=== PATIENT | male | born 1965 | race Caucasian/White ===

== ENCOUNTER 2017-04-17 11:35 | Emergency (ER) | payer OTHER ==
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
[2017-04-17 12:14] VITALS: TEMP 98.5; BMI 38.9
[2017-04-17 13:00] LABS: ALBUMIN 3.8 g/dl (3.4-5.0); ANION GAP 6 (8-16); CALCIUM 10.5 mg/dL (8.5-10.1); CO2 26 mmol/L (21-32); CREATININE 0.6 mg/dL (0.7-1.3); GLUCOSE,RANDOM 183 mg/dL (74-106); SGOT/AST 33 U/L (15-37); SGPT/ALT 62 U/L (12-78)
[2017-04-17 13:01] LABS: ALK PHOS 127 U/L (45-117); BILIRUBIN,TOTAL 0.4 mg/dL (0.2-1.0)
[2017-04-17] MEDS ORDERED: morphine CARPU-JECT 4 MG/1 ML DISP.SYRIN IVPUSH ONE (13:15)
[2017-04-17] MEDS ORDERED: morphine CARPU-JECT 4 MG/1 ML DISP.SYRIN ONE (13:16)
[2017-04-17] MEDS ORDERED: KETOROLAC TROMETHAMINE 15 MG/ML VIAL IVPUSH ONE (14:10)
[2017-04-17] MEDS ORDERED: KETOROLAC TROMETHAMINE 15 MG/ML VIAL ONE (14:18)
[2017-04-17 14:38] LABS: BASOPHIL 0.6 % (0-2.0); EOSINOPHIL 1.3 % (0-4.5); MCH 23.9 pg (25.7-33.7); MCHC 32.1 g/dl (32.0-35.9); MEAN CELL VOLUME 74.5 fl (80-96); MEAN PLT VOLUME 8.6 fl (7.5-11.1); PLATELET COUNT 171 K/MM3 (134-434); RDW 15.1 % (11.9-15.9); WHITE BLOOD COUNT 6.9 K/mm3 (4.0-10.0)
[2017-04-17 15:50] VITALS: BP 149/85; PULSE 81
== END 2017-04-17 15:54 | disposition home or self-care (01) ==
LOC: JER 11:35
PROC: 3E0333Z Introduction of Anti-inflammatory into Peripheral Vein, Percutaneous Approach (ICD-10-PCS; principal; 2017-04-17)
PROC: 3E033NZ Introduction of Analgesics, Hypnotics, Sedatives into Peripheral Vein, Percutaneous Approach (ICD-10-PCS; 2017-04-17)
DX: M54.2 Cervicalgia (principal); E11.9 Type 2 diabetes mellitus without complications; G89.29 Other chronic pain; V43.52XA Car driver injured in collision with other type car in traffic accident, initial encounter; Y93.89 Activity, other specified; Y92.410 Unspecified street and highway as the place of occurrence of the external cause; K85.90 Acute pancreatitis without necrosis or infection, unspecified
CPT/HCPCS: 36415; 70450-TC; 72125-TC; 80053; 85025; 99284-25

== ENCOUNTER 2018-01-21 16:40 | Observation (INO) | payer OTHER ==
[2018-01-21] MEDS ORDERED: SODIUM CHLORIDE 1,000 ML IV ONE ×2 (17:21→18:50)
[2018-01-21] MEDS ORDERED: morphine CARPU-JECT 4 MG/1 ML DISP.SYRIN IVPUSH ONE ×2 (17:21→18:10)
[2018-01-21] MEDS ORDERED: ONDANSETRON 4 MG/2 ML VIAL IVPUSH ONE ×2 (17:21→21:15)
[2018-01-21] MEDS ORDERED: morphine SULFATE 4 MG/ML VIAL ONE ×2 (17:22→18:21)
[2018-01-21] MEDS ORDERED: ONDANSETRON 4 MG/2 ML VIAL ONE ×2 (17:22→21:24)
--- NOTE | 2018-01-21 17:26 | PDOC ---
History of Present Illness - General History Source: Patient Exam Limitations: No Limitations - History of Present Illness Initial Comments: 01/21/18 17:43 The patient is a 52 year old male with a significant past medical history of pancreatitis, hyperlipidemia, diabetes, and chronic back pain who presents to the emergency department for evaluation of epigastric pain. The patient reports moderate mid epigastric pain since Saturday. He describes the pain as intermittent, sharp, throbbing, radiating towards the left to the back, ranked 8 /10 in severity. He reports the pain began after binge eating a large of amount of junk food secondary to his dog passing away on Saturday. Since then, he reports associated symptoms of chills, nausea, and generalized weakness. The patient reports 3 episodes of non bloody non bilious emesis occuring yesterday and today. He reports an episode of diarrhea today which was large in volume, but denies bloody or tarry stool. The patient states the aforementioned symptoms have presented when he was diagnosed with pancreatitis in 2012, prompting him to visit the emergency department for further evaluation. The patient notes he has been encountering these symptoms once a year, for the passed 6 years. He notes his triglyceride, hdl, and ldl levels were off the charts after visiting his primary care doctor 2 weeks ago. 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 The patient denies chest pain, shortness of breath, headache, fever, constipation, and any urinary symptoms. Denies recent travel and history of gallstones. Allergies: NKDA, IV Dye. Social History: Patient reports occasional alcohol consumption. No reported cigarette or drug use. Surgical History: Lymph node removal. PCP: Dr. Sprague ([facility]) GI: Dr. Julius Esquivel ([facility]) <Mckayla Mascorro - Last Filed: 01/21/18 17:43> <Anthony Schulz - Last Filed: 01/21/18 18:09> - General Chief Complaint: Pain Stated Complaint: yakelin pain Time Seen by Provider: 01/21/18 16:42 Past History <Mckayla Mascorro - Last Filed: 01/21/18 17:43> - Past Medical History COPD: No Diabetes: Yes GI Disorders: Yes (PANCREATITIS) - Immunization History Immunization Up to Date: Yes - Suicide/Smoking/Psychosocial Hx Smoking Status: Yes Smoking History: Never smoked Have you smoked in the past 12 months: No Number of Cigarettes Smoked Daily: 0 Information on smoking cessation initiated: No Hx Alcohol Use: No Drug/Substance Use Hx: No Substance Use Type: None <Anthony Schulz - Last Filed: 01/21/18 18:09> - Past Medical History Allergies/Adverse Reactions: Allergies Allergy/AdvReac Type Severity Reaction Status Date / Time No Known Drug Allergies Allergy Verified 04/17/17 13:07 IV DYE Allergy Uncoded 04/17/17 12:59 Home Medications: Ambulatory Orders Dapagliflozin Propanediol [Farxiga] 0 mg PO DAILY 04/17/17 Metformin HCl [Metformin HCl ER] 1,000 mg PO BID 04/17/17 Fenofibrate,Micronized [Fenofibrate] 134 mg PO DAILY 01/21/18 Trazodone HCl 300 mg PO HS 01/21/18 Review of Systems - Review of Systems Constitutional: Yes: Chills. No: Fever Respiratory: No: Cough, Shortness of Breath Cardiac (ROS): No: Chest Pain ABD/GI: Yes: See HPI, Diarrhea, Nausea, Vomiting. No: Constipated : No: Dysuria, Frequency Neurological: No: Headache All Other Systems: Reviewed and Negative <Anthony Schulz - Last Filed: 01/21/18 18:09> *Physical Exam - Vital Signs Last Vital Signs Temp Pulse Resp BP Pulse Ox 98.5 F 108 H 20 143/79 95 01/21/18 16:40 01/21/18 16:40 01/21/18 16:40 01/21/18 16:40 01/21/18 16:40 - Physical Exam Comments: GENERAL: The patient is awake, alert, and fully oriented, in no acute distress. HEAD: Normal with no signs of trauma. EYES: Pupils equal, round and reactive to light, extraocular movements intact, sclera anicteric, conjunctiva clear with no pallor. ENT: (+)Slightly dry mucous membranes. Ears normal, nares patent. NECK: Normal range of motion, supple. LUNGS: Breath sounds equal, clear to auscultation bilaterally. No wheeze/ crackles. HEART: Regular rate and rhythm, normal S1 and S2 without murmur or rub. ABDOMEN: (+)diffuse tenderness to palpation without focal guarding or rebound. Bowel sounds are decreased. EXTREMITIES: Normal range of motion, no edema. No clubbing or cyanosis. No cords, erythema, or tenderness. NEUROLOGICAL: Cranial nerves II through XII grossly intact. Normal speech, normal gait. PSYCH: Normal mood, normal affect. SKIN: Warm, Dry, normal turgor, no rashes or lesions noted. <Mckayla Mascorro - Last Filed: 01/21/18 17:43> - Vital Signs Last Vital Signs Temp Pulse Resp BP Pulse Ox 98.5 F 108 H 20 143/79 95 01/21/18 16:40 01/21/18 16:40 01/21/18 16:40 01/21/18 16:40 01/21/18 16:40 <Anthony Schulz - Last Filed: 01/21/18 18:09> Heart Score/ECG Review #1 ECG reviewed & interpreted by me at: 17:14 General ECG Interpretation: Sinus Rhythm, Normal Rate (101), Normal Intervals ( qtc 446), No acute ischemic changes <Anthony Schulz - Last Filed: 01/21/18 18:09> ED Treatment Course - LABORATORY CBC & Chemistry Diagram: 01/21/18 17:25 01/21/18 17:25 - ADDITIONAL ORDERS Additional order review: Laboratory Results 01/21/18 16:50 Urine Color Yellow Urine Appearance Clear Urine pH 6.0 Ur Specific [place] 1.015 Urine Protein Negative Urine Glucose (UA) 2+ H Urine Ketones Negative Urine Blood Negative Urine Nitrite Negative Urine Bilirubin Negative Urine Urobilinogen 0.2 Ur Leukocyte Esterase Negative 01/21/18 17:25 RBC 6.17 H MCV 74.8 L MCHC 33.7 RDW 14.5 MPV 8.3 Neutrophils % 57.2 Lymphocytes % 31.8 Monocytes % 7.5 Eosinophils % 2.1 Basophils % 1.4 <Mckayla Masocrro - Last Filed: 01/21/18 17:43> - LABORATORY CBC & Chemistry Diagram: 01/21/18 17:25 01/21/18 17:25 <Anthony Schulz - Last Filed: 01/21/18 18:09> Medical Decision Making - Medical Decision Making 01/21/18 17:23 A portion of this note was documented by scribe services under my direction. I have reviewed the details of the note, within reason, and agree with the documentation with the following case summary and management plan written by me. 52-year-old male with history of diabetes and pancreatitis presents with epigastric and left upper quadrant pain for 4 days similar to past pancreatitis. Patient had grief over his dog passing way, had a large meal 5 minutes ago which he feels prompted his pancreatitis. The following day, he awoke with his typical gradual and progressive epigastric pain with nonbloody diarrhea, and nonbloody nonbilious emesis beginning yesterday. Chills but no fever, no cardiopulmonary complaints, no recent travel. Slight tachycardia, otherwise ambulating steadily and well-appearing Slightly dry mucosa, no jaundice or pallor Obese, soft, nondistended abdomen. Diffuse tenderness without focal guarding or rebound, greatest in the epigastric region. Skin is clear, no edema 52-year-old male with history of pancreatitis presents with possible recurrence , question triglyceride induced, denies alcohol use and reports negative gallstone workups in the past. No focal right upper quadrant pain or tenderness to suggest biliary etiology. He is primarily cared for at [facility]. Check labs, urinalysis EKG is nonischemic IV fluids, pain control, nausea control Reassess 01/21/18 18:01 No leukocytosis, white count 5.8 with normal differential. Normal hemoglobin. Chemistries notable for mild hyponatremia and hypochloremia with metabolic alkalosis consistent with recent vomiting. Slightly elevated glucose with normal anion gap. Urinalysis is clear with only 2+ glucose. Lipase pending. Receiving iv fluids, pain improved but persistent, will give another dose of pain meds. Will proceed with admission given dehydration and hyperglycemia, gastritis v. pancreatitis pending lipase. <Anthony Schulz - Last Filed: 01/21/18 18:09> *DC/Admit/Observation/Transfer - Attestations Scribe Attestion: Documentation prepared by Mckayla Mascorro, acting as medical office receptionist for Anthony Schulz MD. <Mckayla Mascorro - Last Filed: 01/21/18 17:43> <Anthony Schulz - Last Filed: 01/21/18 18:09> Diagnosis at time of Disposition: Epigastric abdominal pain, Metabolic alkalosis - Discharge Dispostion Condition at time of disposition: Fair
[2018-01-21 17:28] LABS: URINE APPEARANCE Clear; URINE BILIRUBIN Negative (NEGATIVE); URINE GLUCOSE (UA) 2+ (NEGATIVE); URINE KETONE Negative (NEGATIVE); URINE LEUK ESTERASE Negative (NEGATIVE); URINE NITRITE Negative (NEGATIVE); URINE PROTEIN Negative (NEGATIVE); URINE UROBILINOGEN 0.2 (0.2-1.0)
[2018-01-21 17:30] LABS: URINE COLOR YELLOW
[2018-01-21 17:38] LABS: BASO % 1.4 % (0-2.0); EOS % 2.1 % (0-4.5); HEMATOCRIT 46.2 % (35.4-49); HEMOGLOBIN 15.6 GM/dl (11.7-16.9); LYMPH % 31.8 % (8-40); MCH 25.2 pg (25.7-33.7); MCHC 33.7 g/dl (32.0-35.9); MEAN CELL VOLUME 74.8 fl (80-96); MEAN PLT VOLUME 8.3 fl (7.5-11.1); MONO % 7.5 % (3.8-10.2); NEUT % 57.2 % (42.8-82.8); PLATELET COUNT 184 K/MM3 (134-434); RBC 6.17 M/mm3 (4.00-5.60); RDW 14.5 % (11.9-15.9); WHITE BLOOD COUNT 5.8 K/mm3 (4.0-10.8)
[2018-01-21 17:52] LABS: ALBUMIN 4.1 g/dl (3.5-5.0); ALK PHOS 101 U/L (32-92); ANION GAP 8 (8-16); BLOOD UREA NITROGEN 12 mg/dl (7-18); CALCIUM 10.5 mg/dl (8.4-10.2); CHLORIDE 95 mmol/L (98-107); CO2 29 mmol/L (22-28); CREATININE 0.7 mg/dl (0.6-1.3); POTASSIUM 4.1 mmol/L (3.5-5.1); SGOT/AST 24 U/L (10-42); SGPT/ALT 35 U/L (10-40); SODIUM 132 mmol/L (136-145); TOT PROT 6.8 g/dl (6.4-8.3)
[2018-01-21 17:57] LABS: BILIRUBIN,TOTAL < 0.3 mg/dl (0.2-1.0); GLUCOSE,RANDOM 382 mg/dl (74-106)
--- NOTE | 2018-01-21 18:56 | PDOC ---
*Physical Exam - Vital Signs Last Vital Signs Temp Pulse Resp BP Pulse Ox 98.5 F 108 H 20 143/79 95 01/21/18 16:40 01/21/18 16:40 01/21/18 16:40 01/21/18 16:40 01/21/18 16:40 ED Treatment Course - LABORATORY CBC & Chemistry Diagram: 01/21/18 17:25 01/21/18 17:25 - ADDITIONAL ORDERS Additional order review: Laboratory Results 01/21/18 01/21/18 17:25 16:50 Sodium 132 L Potassium 4.1 Chloride 95 L Carbon Dioxide 29 H Anion Gap 8 BUN 12 Creatinine 0.7 Creat Clearance w eGFR > 60 Random Glucose 382 H* Calcium 10.5 H Total Bilirubin < 0.3 AST 24 ALT 35 Alkaline Phosphatase 101 H Total Protein 6.8 Albumin 4.1 Urine Color Yellow Urine Appearance Clear Urine pH 6.0 Ur Specific [place] 1.015 Urine Protein Negative Urine Glucose (UA) 2+ H Urine Ketones Negative Urine Blood Negative Urine Nitrite Negative Urine Bilirubin Negative Urine Urobilinogen 0.2 Ur Leukocyte Esterase Negative 01/21/18 17:25 RBC 6.17 H MCV 74.8 L MCHC 33.7 RDW 14.5 MPV 8.3 Neutrophils % 57.2 Lymphocytes % 31.8 Monocytes % 7.5 Eosinophils % 2.1 Basophils % 1.4 - Medications Given in the ED: ED Medications Discontinued Medications Generic Name Dose Route Start Last Admin Trade Name Freq PRN Reason Stop Dose Admin Sodium Chloride 1,000 mls @ 1,000 mls/hr 01/21/18 17:21 01/21/18 17:22 Normal Saline - IV 01/21/18 18:20 1,000 mls/hr ONCE ONE Administration Morphine Sulfate 4 mg 01/21/18 17:21 01/21/18 17:22 Morphine Injection - IVPUSH 01/21/18 17:22 4 mg ONCE ONE Administration Morphine Sulfate 4 mg 01/21/18 18:10 01/21/18 18:24 Morphine Injection - IVPUSH 01/21/18 18:11 4 mg ONCE ONE Administration Ondansetron HCl 8 mg 01/21/18 17:21 01/21/18 17:22 Zofran Injection IVPUSH 01/21/18 17:22 8 mg ONCE ONE Administration Progress Note - Progress Note Progress Note: This is a 52-year-old male with 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 Care of this patient was transferred to me from Dr. elaine at 1800 hrs. Patient has admission pending for acute pancreatitis. Patient has a normal white count his glucose is moderately elevated so I wrote him for 10 units of regular insulin. Patient also is on his second liter of IV fluid which will also help with his glucose. Patient's sodium is little low and he is little alkalotic. IV fluids should help correct both of those. Patient will be admitted to an observation bed. 19:20 Patient accepted for admission by Dr. Bernard hospitalist service Signout given to the admitting hospitalist, who accepts the patient. Discussed plan with the patient., Patient aware of the plan and agree. Patient is clinically unchanged and stable. *DC/Admit/Observation/Transfer Diagnosis at time of Disposition: Epigastric abdominal pain, Metabolic alkalosis - Discharge Dispostion Condition at time of disposition: Fair - Referrals - Patient Instructions - Post Discharge Activity
[2018-01-21] MEDS ORDERED: HYDROmorphone HCL CARPU-JECT 1 MG/1 ML DISP.SYRIN IVPUSH ONE (18:59)
[2018-01-21] MEDS ORDERED: INSULIN REGULAR HUMAN 100 UNITS/ML *VIAL SQ ONE (19:01)
[2018-01-21] MEDS ORDERED: HYDROmorphone HCL CARPU-JECT 2 MG/1 ML DISP.SYRIN ONE (19:01)
[2018-01-21] MEDS ORDERED: INSULIN REGULAR HUMAN 100 UNITS/ML *VIAL ONE (19:04)
[2018-01-21 19:37] LABS: LIPASE 218 U/L (73-393)
[2018-01-21] MEDS ORDERED: HEMOQUE TEST 1 EACH EACH ONE (20:35)
[2018-01-21] MEDS ORDERED: ONDANSETRON 4 MG/2 ML VIAL IVPUSH PRN (20:37)
[2018-01-21] MEDS ORDERED: SODIUM CHLORIDE 1,000 ML IV SCH (20:45)
[2018-01-21] MEDS: morphine SULFATE 4 MG/ML VIAL IVPUSH PRN (22:49)
[2018-01-21] MEDS ORDERED: morphine CARPU-JECT 4 MG/1 ML DISP.SYRIN IVPUSH PRN (23:00)
[2018-01-21 23:13] VITALS: BMI 33.0
[2018-01-21] MEDS ORDERED: KETOROLAC TROMETHAMINE 30 MG/1 ML VIAL IVPUSH PRN (23:53)
[2018-01-22 05:42] VITALS: BP 117/58; PULSE 94; TEMP 98.9
--- NOTE | 2018-01-22 07:05 | HP ---
CHIEF COMPLAINT: abdominal pain PCP: Dr Sprague ([place]) GI: Dr Esquivel ([facility]) HISTORY OF PRESENT ILLNESS: Patient is a 52 year old male with a past medical history a significant past medical history of pancreatitis, hyperlipidemia, diabetes, and chronic back pain. Patient was reports epigastric pain since 01/18/18. Patient describes the pain as intermittent, sharp, throbbing, radiating towards the left to the back, ranked 8/10 in severity. He reports the pain started after binge eating a large of amount of junk food secondary to his dog passing away on Saturday. Since then, he reports associated symptoms of chills, nausea, and generalized weakness. The patient reports 3 episodes of non bloody non bilious emesis for the past 2 days. ER course was notable for: (1)ct of abd/pelvis w/o contrast: no acute pathology (2)wbc 5.8 (3) lipase 218 Recent Travel: none PAST MEDICAL HISTORY: mother alive and well father alive and well PAST SURGICAL HISTORY: lymph node removal Social History: resides at home alone, employed group managing director Smoking: Alcohol: Drugs: Family History: Allergies No Known Drug Allergies Allergy (Verified 04/17/17 13:07) IV DYE Allergy (Uncoded 04/17/17 12:59) HOME MEDICATIONS: Home Medications Medication Instructions Recorded Dapagliflozin Propanediol [Farxiga] 0 mg PO DAILY 04/17/17 Metformin HCl [Metformin HCl ER] 1,000 mg PO BID 04/17/17 Fenofibrate,Micronized 134 mg PO DAILY 01/21/18 [Fenofibrate] Trazodone HCl 300 mg PO HS 01/21/18 REVIEW OF SYSTEMS CONSTITUTIONAL: Absent: fever, chills, diaphoresis, generalized weakness, malaise, loss of appetite, weight change HEENT: Absent: rhinorrhea, nasal congestion, throat pain, throat swelling, difficulty swallowing, mouth swelling, ear pain, eye pain, visual changes CARDIOVASCULAR: Absent: chest pain, syncope, palpitations, irregular heart rate, lightheadedness , peripheral edema RESPIRATORY: Absent: cough, shortness of breath, dyspnea with exertion, orthopnea, wheezing, stridor, hemoptysis GASTROINTESTINAL: Absent: abdominal pain, abdominal distension, nausea, vomiting, diarrhea, constipation, melena, hematochezia GENITOURINARY: Absent: dysuria, frequency, urgency, hesitancy, hematuria, flank pain, genital pain MUSCULOSKELETAL: Absent: myalgia, arthralgia, joint swelling, back pain, neck pain SKIN: Absent: rash, itching, pallor HEMATOLOGIC/IMMUNOLOGIC: Absent: easy bleeding, easy bruising, lymphadenopathy, frequent infections ENDOCRINE: Absent: unexplained weight gain, unexplained weight loss, heat intolerance, cold intolerance NEUROLOGIC: Absent: headache, focal weakness or paresthesias, dizziness, unsteady gait, seizure, mental status changes, bladder or bowel incontinence PSYCHIATRIC: Absent: anxiety, depression, suicidal or homicidal ideation, hallucinations. PHYSICAL EXAMINATION Vital Signs - 24 hr 01/21/18 01/21/18 01/21/18 16:40 19:30 20:16 Temperature 98.5 F Pulse Rate 108 H Pulse Rate [ 90 Left] Respiratory 20 16 Rate Blood Pressure 143/79 Blood Pressure 111/100 109/72 [Right] O2 Sat by Pulse 95 95 Oximetry (%) 01/21/18 01/21/18 01/21/18 22:00 22:23 22:50 Temperature 97.9 F 97.9 F Pulse Rate 90 90 Pulse Rate [ Left] Respiratory 90 H 18 Rate Blood Pressure 140/74 140/74 Blood Pressure [Right] O2 Sat by Pulse 95 95 Oximetry (%) 01/22/18 01/22/18 04:38 05:41 Temperature 98.9 F Pulse Rate 94 H Pulse Rate [ Left] Respiratory 18 20 Rate Blood Pressure 117/58 Blood Pressure [Right] O2 Sat by Pulse 95 97 Oximetry (%) GENERAL: Awake, alert, and fully oriented, in no acute distress. HEAD: Normal with no signs of trauma. EYES: Pupils equal, round and reactive to light, extraocular movements intact, sclera anicteric, conjunctiva clear. No lid lag. EARS, NOSE, THROAT: Ears normal, nares patent, oropharynx clear without exudates. Moist mucous membranes. NECK: Normal range of motion, supple without lymphadenopathy, JVD, or masses. LUNGS: Breath sounds equal, clear to auscultation bilaterally. No wheezes, and no crackles. No accessory muscle use. HEART: Regular rate and rhythm, normal S1 and S2 without murmur, rub or gallop. ABDOMEN: Soft, nontender, not distended, normoactive bowel sounds, no guarding, no rebound, no masses. No hepatomegaly or splenomegaly. MUSCULOSKELETAL: Normal range of motion at all joints. No bony deformities or tenderness. No CVA tenderness. UPPER EXTREMITIES: 2+ pulses, warm, well-perfused. No cyanosis. No clubbing. No peripheral edema. LOWER EXTREMITIES: 2+ pulses, warm, well-perfused. No calf tenderness. No peripheral edema. NEUROLOGICAL: Cranial nerves II-XII intact. Normal speech. Normal gait. PSYCHIATRIC: Cooperative. Good eye contact. Appropriate mood and affect. SKIN: Warm, dry, normal turgor, no rashes or lesions noted, normal capillary refill. Laboratory Results - last 24 hr 01/21/18 01/21/18 01/21/18 16:50 17:25 17:25 WBC 5.8 RBC 6.17 H Hgb 15.6 Hct 46.2 MCV 74.8 L MCH 25.2 L MCHC 33.7 RDW 14.5 Plt Count 184 MPV 8.3 Absolute Neuts (auto) 3.3 Neutrophils % 57.2 Lymphocytes % 31.8 Monocytes % 7.5 Eosinophils % 2.1 Basophils % 1.4 Sodium 132 L Potassium 4.1 Chloride 95 L Carbon Dioxide 29 H Anion Gap 8 BUN 12 Creatinine 0.7 Creat Clearance w eGFR > 60 POC Glucometer Random Glucose 382 H* Calcium 10.5 H Total Bilirubin < 0.3 AST 24 ALT 35 Alkaline Phosphatase 101 H Total Protein 6.8 Albumin 4.1 Lipase 218 Urine Color Yellow Urine Appearance Clear Urine pH 6.0 Ur Specific [place] 1.015 Urine Protein Negative Urine Glucose (UA) 2+ H Urine Ketones Negative Urine Blood Negative Urine Nitrite Negative Urine Bilirubin Negative Urine Urobilinogen 0.2 Ur Leukocyte Esterase Negative 01/21/18 01/21/18 20:40 22:38 WBC RBC Hgb Hct MCV MCH MCHC RDW Plt Count MPV Absolute Neuts (auto) Neutrophils % Lymphocytes % Monocytes % Eosinophils % Basophils % Sodium Potassium Chloride Carbon Dioxide Anion Gap BUN Creatinine Creat Clearance w eGFR POC Glucometer [phone] Random Glucose Calcium Total Bilirubin AST ALT Alkaline Phosphatase Total Protein Albumin Lipase Urine Color Urine Appearance Urine pH Ur Specific [place] Urine Protein Urine Glucose (UA) Urine Ketones Urine Blood Urine Nitrite Urine Bilirubin Urine Urobilinogen Ur Leukocyte Esterase ASSESSMENT/PLAN: 1) GI abdominal pain - lipase wnl, benign abdominal exam,, ct scan of abdomen reviewed, pain likely gastritis vs diabetic gastroperesis,will start protonix and reglan - serial abdominal exams - appreciate GI input 2) endo DM hyperglycemia -hgb a1c 12.3, uncontrolled diabetes, will continue metformin, start fingersticks achs with regular insulin sliding scale - appreciate endo input 3) cardiovascular hypertryglceremia - continue finobrate f/e/n - diabetic diet - replete lytes prn ppx - oob - protonix dispo - pt requires observation admission Problem List - Problem (1) Epigastric abdominal pain Code(s): R10.13 - EPIGASTRIC PAIN Visit type - Emergency Visit Emergency Visit: Yes ED Registration Date: 01/21/18 Care time: The patient presented to the Emergency Department on the above date and was hospitalized for further evaluation of their emergent condition. - New Patient This patient is new to me today: Yes Date on this admission: 01/22/18 - Critical Care Critical Care patient: No Hospitalist Screening - Colonoscopy Questionnaire Colonoscopy Questionnaire: Colonoscopy Questionnaire - Patient: 50 - 75 years old and never had a screening colonoscopy: No History of colon or rectal polyps, or CA: No History of IBD, Crohn's disease or UC: No History of abdominal radiation therapy as a child: No - Relative: 1 with colon or rectal CA, or polyps at age 60 or younger: Yes Colon or rectal CA diagnosed at age 45 or younger: No Multiple relatives with colon or rectal CA: No - Outcome: Screening Result: Positive Screen
[2018-01-22 08:19] LABS: BASO % 0.5 % (0-2.0); HEMATOCRIT 41.5 % (35.4-49); HEMOGLOBIN 13.8 GM/dl (11.7-16.9); LYMPH % 37.2 % (8-40); MCH 25.1 pg (25.7-33.7); MCHC 33.2 g/dl (32.0-35.9); MEAN CELL VOLUME 75.6 fl (80-96); MEAN PLT VOLUME 8.5 fl (7.5-11.1); MONO % 8.8 % (3.8-10.2); NEUT % 51.5 % (42.8-82.8); PLATELET COUNT 144 K/MM3 (134-434); RBC 5.49 M/mm3 (4.00-5.60); RDW 14.5 % (11.9-15.9); WHITE BLOOD COUNT 4.1 K/mm3 (4.0-10.8)
[2018-01-22 08:30] LABS: AMYLASE 60 U/L (25-125); ANION GAP 4 (8-16); BLOOD UREA NITROGEN 10 mg/dl (7-18); CALCIUM 9.2 mg/dl (8.4-10.2); CHLORIDE 104 mmol/L (98-107); CO2 27 mmol/L (22-28); GLUCOSE,RANDOM 239 mg/dl (74-106); POTASSIUM 4.3 mmol/L (3.5-5.1); SODIUM 135 mmol/L (136-145)
[2018-01-22 08:33] LABS: ALBUMIN 3.2 g/dl (3.5-5.0); ALK PHOS 78 U/L (32-92); SGOT/AST 20 U/L (10-42); SGPT/ALT 34 U/L (10-40); TOT PROT 5.7 g/dl (6.4-8.3)
[2018-01-22 08:36] LABS: CREATININE < 0.8 mg/dl (0.6-1.3)
[2018-01-22 08:37] LABS: BILIRUBIN,DIRECT < 0.2 mg/dL (0.0-0.3); BILIRUBIN,TOTAL < 0.5 mg/dl (0.2-1.0)
[2018-01-22] MEDS ORDERED: METOCLOPRAMIDE HCL INJECTION 10 MG/2 ML VIAL IVPUSH ONE (09:02)
[2018-01-22] MEDS: morphine SULFATE 4 MG/ML VIAL IVPUSH PRN (09:29)
--- NOTE | 2018-01-22 09:57 | PN ---
Progress Note (short form) - Note Progress Note: Patient seen and chart reviewed. Consult dictated. Patient with recent abdominal pain ?diffuse and hx of pancreatitis in the past. No evidence of pancreatitis on CT scan and lipase level normal Doubt acute pancreatitis. Patient feels better today on Reglan and PPI. Has been under "stress" with his dog dying and work - eating junk foods. More likely has GI upset due to combination of factors and underlying peptic disease. Currently feels better and wants to eat/ increase activity. Discussed with [employer] CONSULTANT; would advance diet and continue PPI with dietary instructions (avoid fatty foods). Will follow clinically.
[2018-01-22] MEDS ORDERED: PATIENT'S OWN MEDICATION (NON-FORMULARY) (Dapagliflozin Propanediol [Farxiga] 5 MG) PO SCH (10:00)
[2018-01-22] MEDS ORDERED: PANTOPRAZOLE SODIUM 40 MG VIAL IVPUSH SCH (10:00)
[2018-01-22] MEDS ORDERED: FENOFIBRIC ACID 135 MG CAP PO SCH (10:00)
[2018-01-22] MEDS ORDERED: INSULIN SLIDING SCALE (NOVOLOG) 1 VIAL SQ SCH (11:00)
--- NOTE | 2018-01-22 11:05 | CONS ---
DATE OF CONSULTATION: DATE OF DICTATION: 01/22/2018 Patient is a 52-year-old gentleman admitted by the emergency room with abdominal pain. The patient has a past history of diabetes mellitus under fair control and a history of mild peptic disease in the past. He also reports having had pancreatitis due to elevated triglycerides several years ago. The patient presented to the emergency room with a history of abdominal pain for 1 day with some initial radiation to the back, but currently without any radiation. He states that the pain currently is more diffuse and without any nausea, vomiting, fever, or chills. His vital signs were stable on admission and his laboratory data were notable for normal liver chemistries and a normal amylase and lipase. A CAT scan of the abdomen showed no acute pathology and specifically no evidence of pancreatitis. The patient has received Reglan and PPI therapy with a good response. He currently states that the pain is markedly improved. He did also receive Toradol initially. He has no prior history of abdominal surgery, but is having some looser bowel movements currently. PHYSICAL EXAMINATION: General: On exam, he is a well-developed, moderately overweight gentleman with pink conjunctiva, a soft abdomen, normoactive bowel sounds and nonspecific tenderness throughout the abdomen without rebound or guarding. His laboratory tests today include a white count of 4.1, hemoglobin of 13.0 with hematocrit of 41.5 and normal chemistries, including LFTs and lipase. Patient without evidence of acute pancreatitis currently, appears to have had epigastric pain and some abdominal pain, possibly worsened by dietary indiscretion over the past several days along with stress related to several factors, including work and of his dog. At the present time, he is clinically improving. I would discontinue Reglan in view of his looser stool and continue him on a proton pump inhibitor, would slowly advance diet and follow clinically. TERI HINTON M.D. [id number]
[2018-01-22] MEDS ORDERED: INSULIN (NOVOLOG) ASPART 100 UNITS/ML 10ML VIAL ONE (11:45)
--- NOTE | 2018-01-22 13:09 | EKG ---
Test Reason : Blood Pressure : / mmHG Vent. Rate : 101 BPM Atrial Rate : 101 BPM P-R Int : 144 ms QRS Dur : 092 ms QT Int : 344 ms P-R-T Axes : 021 017 053 degrees QTc Int : 446 ms SINUS TACHYCARDIA OTHERWISE NORMAL ECG WHEN COMPARED WITH ECG OF 19-DEC-2012 13:57, NO SIGNIFICANT CHANGE WAS FOUND Confirmed by ERIC GREGORY MD ([id number]) on 01/22/2018 1:09:19 PM Referred By: DR MCLAUGHLIN Confirmed By:ERIC GREGORY MD
--- NOTE | 2018-01-22 13:58 | DS ---
Physical Exam: SUBJECTIVE: Patient seen and examined, ambulatory at bedside, denies any chest pain or shortness of breath, tolerating low sodium diabetic diet. OBJECTIVE:Patient is a 52 year old male with a past medical history a significant past medical history of pancreatitis, hyperlipidemia, diabetes, and chronic back pain. Patient was reports epigastric pain since Saturday, . Patient describes the pain as intermittent, sharp, throbbing, radiating towards the left to the back, ranked 8/10 in severity. He reports the pain started after binge eating a large of amount of junk food secondary to his dog passing away on Saturday. Since then, he reports associated symptoms of chills, nausea, and generalized weakness. The patient reports 3 episodes of non bloody non bilious emesis for the past 2 days. ER course was notable for: (1)ct of abd/pelvis w/o contrast: no acute pathology (2)wbc 5.8 (3) lipase 218 Vital Signs Period Temp Pulse Resp BP Sys/Poon Pulse Ox Last 24 Hr 97.9 F-98.9 F 90-108 16-90 109-143/58-100 95-97 PHYSICAL EXAM GENERAL: The patient is awake, alert, and fully oriented, in no acute distress. HEAD: Normal with no signs of trauma. EYES: PERRL, extraocular movements intact, sclera anicteric, conjunctiva clear. ENT: Ears normal, nares patent, oropharynx clear without exudates, moist mucous membranes. NECK: Trachea midline, full range of motion, supple. LUNGS: Breath sounds equal, clear to auscultation bilaterally, no wheezes, no crackles, no accessory muscle use. HEART: Regular rate and rhythm, S1, S2 without murmur, rub or gallop. ABDOMEN: Soft, nontender, nondistended, normoactive bowel sounds, no guarding, no rebound, no hepatosplenomegaly, no masses. EXTREMITIES: 2+ pulses, warm, well-perfused, no edema. NEUROLOGICAL: Cranial nerves II through XII grossly intact. Normal speech, gait not observed. PSYCH: Normal mood, normal affect. SKIN: Warm, dry, normal turgor, no rashes or lesions noted. LABS Laboratory Results - last 24 hr 01/21/18 01/21/18 01/21/18 16:50 17:25 17:25 WBC 5.8 RBC 6.17 H Hgb 15.6 Hct 46.2 MCV 74.8 L MCH 25.2 L MCHC 33.7 RDW 14.5 Plt Count 184 MPV 8.3 Absolute Neuts (auto) 3.3 Neutrophils % 57.2 Lymphocytes % 31.8 Monocytes % 7.5 Eosinophils % 2.1 Basophils % 1.4 Sodium 132 L Potassium 4.1 Chloride 95 L Carbon Dioxide 29 H Anion Gap 8 BUN 12 Creatinine 0.7 Creat Clearance w eGFR > 60 POC Glucometer Random Glucose 382 H* Hemoglobin A1c % Calcium 10.5 H Total Bilirubin < 0.3 Direct Bilirubin AST 24 ALT 35 Alkaline Phosphatase 101 H Total Protein 6.8 Albumin 4.1 Total Amylase Lipase 218 Urine Color Yellow Urine Appearance Clear Urine pH 6.0 Ur Specific [place] 1.015 Urine Protein Negative Urine Glucose (UA) 2+ H Urine Ketones Negative Urine Blood Negative Urine Nitrite Negative Urine Bilirubin Negative Urine Urobilinogen 0.2 Ur Leukocyte Esterase Negative 01/21/18 01/21/18 01/22/18 20:40 22:38 07:15 WBC 4.1 RBC 5.49 Hgb 13.8 Hct 41.5 MCV 75.6 L MCH 25.1 L MCHC 33.2 RDW 14.5 Plt Count 144 D MPV 8.5 Absolute Neuts (auto) 2.1 Neutrophils % 51.5 Lymphocytes % 37.2 Monocytes % 8.8 Eosinophils % 2.0 Basophils % 0.5 Sodium Potassium Chloride Carbon Dioxide Anion Gap BUN Creatinine Creat Clearance w eGFR POC Glucometer [phone] Random Glucose Hemoglobin A1c % Calcium Total Bilirubin Direct Bilirubin AST ALT Alkaline Phosphatase Total Protein Albumin Total Amylase Lipase Urine Color Urine Appearance Urine pH Ur Specific [place] Urine Protein Urine Glucose (UA) Urine Ketones Urine Blood Urine Nitrite Urine Bilirubin Urine Urobilinogen Ur Leukocyte Esterase 01/22/18 01/22/18 01/22/18 07:15 07:15 07:15 WBC RBC Hgb Hct MCV MCH MCHC RDW Plt Count MPV Absolute Neuts (auto) Neutrophils % Lymphocytes % Monocytes % Eosinophils % Basophils % Sodium 135 L Potassium 4.3 Chloride 104 Carbon Dioxide 27 Anion Gap 4 L BUN 10 Creatinine < 0.8 Creat Clearance w eGFR > 60 POC Glucometer Random Glucose 239 H D Hemoglobin A1c % 12.3 H Calcium 9.2 Total Bilirubin Direct Bilirubin AST ALT Alkaline Phosphatase Total Protein Albumin Total Amylase 60 Lipase 365 Urine Color Urine Appearance Urine pH Ur Specific [place] Urine Protein Urine Glucose (UA) Urine Ketones Urine Blood Urine Nitrite Urine Bilirubin Urine Urobilinogen Ur Leukocyte Esterase 01/22/18 01/22/18 07:15 11:12 WBC RBC Hgb Hct MCV MCH MCHC RDW Plt Count MPV Absolute Neuts (auto) Neutrophils % Lymphocytes % Monocytes % Eosinophils % Basophils % Sodium Potassium Chloride Carbon Dioxide Anion Gap BUN Creatinine Creat Clearance w eGFR POC Glucometer 223 Random Glucose Hemoglobin A1c % Calcium Total Bilirubin < 0.5 Direct Bilirubin < 0.2 AST 20 ALT 34 Alkaline Phosphatase 78 D Total Protein 5.7 L Albumin 3.2 L Total Amylase Lipase Urine Color Urine Appearance Urine pH Ur Specific [place] Urine Protein Urine Glucose (UA) Urine Ketones Urine Blood Urine Nitrite Urine Bilirubin Urine Urobilinogen Ur Leukocyte Esterase HOSPITAL COURSE: patient was admitted from the emergency department to observation for abdominal pain. lipase wnl, benign abdominal exam,, ct scan of abdomen reviewed as above. Abdominal pain resolved. patient is tolerating regular diet (diabetic/low sodium). abdominal pain secondary to gastritis vs diabetic gastroperesis. abdominal discomfort resolved after protonix and reglan. Dr Jara, GI consulted and followed. patient has a past medical history of DM. He was noted to have hyperglycemia upon arrival, hgb a1c 12.3, uncontrolled diabetes. lengthy, discussion with patient in regards to compliance of diabetic diet and the need for insulin. Patient declined insulin and requesting follow up with his PCP. PLAN - strict follow up with PCP in regards to elevated hgb a1c. - continue reglan as needed - return precautions reviewed Date of Admission:01/21/18 Date of Discharge: 01/22/18 Minutes to complete discharge: 45 Discharge Summary Reason For Visit: METABOLIC,ALKALOSIS,EPIGATRIC PAIN Current Active Problems Epigastric abdominal pain (Acute) Metabolic alkalosis (Acute) Condition: Fair - Instructions - Home Medications Comprehensive Discharge Medication List: Ambulatory Orders Dapagliflozin Propanediol [Farxiga] 0 mg PO DAILY 04/17/17 Metformin HCl [Metformin HCl ER] 1,000 mg PO BID 04/17/17 Fenofibrate,Micronized [Fenofibrate] 134 mg PO DAILY 01/21/18 RX: Trazodone HCl 300 mg PO HS 01/21/18 Problem List - Problems (1) Epigastric abdominal pain Code(s): R10.13 - EPIGASTRIC PAIN
[2018-01-22] MEDS ORDERED: METOCLOPRAMIDE HCL INJECTION 10 MG/2 ML VIAL IVPUSH SCH (16:30)
[2018-01-22] MEDS ORDERED: traZODone HCL 50 MG TABLET (FP) PO SCH (22:00)
== END 2018-01-22 14:30 | disposition home or self-care (01) ==
LOC: FER 16:40 → FM/S 20:48
PROVIDERS: ADMIT Internal Medicine; ATTEND Nurse Practitioner Family
PROC: 3E0333Z Introduction of Anti-inflammatory into Peripheral Vein, Percutaneous Approach (ICD-10-PCS; principal; 2018-01-21)
PROC: 3E033NZ Introduction of Analgesics, Hypnotics, Sedatives into Peripheral Vein, Percutaneous Approach (ICD-10-PCS; 2018-01-21)
PROC: 3E033GC Introduction of Other Therapeutic Substance into Peripheral Vein, Percutaneous Approach (ICD-10-PCS; 2018-01-21)
PROC: 3E0337Z Introduction of Electrolytic and Water Balance Substance into Peripheral Vein, Percutaneous Approach (ICD-10-PCS; 2018-01-21)
PROC: 3E013VG Introduction of Insulin into Subcutaneous Tissue, Percutaneous Approach (ICD-10-PCS; 2018-01-21)
DX: R10.13 Epigastric pain (principal); E87.3 Alkalosis; E78.5 Hyperlipidemia, unspecified; E11.9 Type 2 diabetes mellitus without complications; M54.5 Low back pain; G89.29 Other chronic pain; R00.0 Tachycardia, unspecified; E66.9 Obesity, unspecified; Z68.33 Body mass index [BMI] 33.0-33.9, adult; Z79.84 Long term (current) use of oral hypoglycemic drugs; Z91.041 Radiographic dye allergy status; Z87.19 Personal history of other diseases of the digestive system
CPT/HCPCS: 36415; 74176-TC; 80048; 80053; 80076; 81003; 82150; 82962; 83036; 83690; 85025; 93005; 99284-25; G0378; J7030

== ENCOUNTER 2021-01-17 12:48 | Emergency (ER) | payer OTHER ==
[2021-01-17 13:08] VITALS: TEMP 98.5; BMI 32.9
[2021-01-17] MEDS ORDERED: SODIUM CHLORIDE 0.9% 500 ML INFUS.BAG IV ONE (14:16)
[2021-01-17] MEDS ORDERED: ONDANSETRON 4 MG/2 ML VIAL IVPB ONE (14:44)
[2021-01-17] MEDS ORDERED: MECLIZINE HCL 25 MG TABLET (FP) PO ONE (14:44)
[2021-01-17] MEDS ORDERED: MECLIZINE HCL 25 MG TABLET (FP) ONE (15:00)
[2021-01-17] MEDS ORDERED: ONDANSETRON 4 MG/2 ML VIAL ONE (15:01)
[2021-01-17 15:05] LABS: BASO % 0.4 % (0-2.0); EOS % 1.2 % (0-4.5); HEMATOCRIT 48.1 % (35.4-49); HEMOGLOBIN 15.7 GM/dL (11.7-16.9); LYMPH % 19.2 % (8-40); MCHC 32.7 g/dl (32.0-35.9); MEAN CELL VOLUME 73.5 fl (80-96); MEAN PLT VOLUME 7.8 fl (7.5-11.1); MONO % 6.8 % (3.8-10.2); NEUT % 72.4 % (42.8-82.8); PLATELET COUNT 182 10^3/uL (134-434); RBC 6.54 M/mm3 (4.00-5.60); RDW 16.2 % (11.9-15.9); WHITE BLOOD COUNT 9.7 K/mm3 (4.0-10.0)
[2021-01-17 15:31] LABS: CHLORIDE 105 mmol/L (98-107); SODIUM 138 mmol/L (136-145)
[2021-01-17 15:33] LABS: CALCIUM 9.9 mg/dL (8.5-10.1)
[2021-01-17 15:34] LABS: ALBUMIN 3.7 g/dl (3.4-5.0); ANION GAP 6 MMOL/L (8-16); BLOOD UREA NITROGEN 10.7 mg/dL (7-18); CO2 27 mmol/L (21-32); GLUCOSE,RANDOM 67 mg/dL (74-106); LIPASE 86 U/L (73-393); MAGNESIUM 2.1 mg/dL (1.8-2.4)
[2021-01-17 15:36] LABS: SGPT/ALT 37 U/L (13-61)
[2021-01-17 15:37] LABS: CREATININE 0.5 mg/dL (0.55-1.3); SGOT/AST 13 U/L (15-37)
[2021-01-17 15:38] LABS: BILIRUBIN,TOTAL 0.3 mg/dL (0.2-1)
[2021-01-17 15:39] LABS: ALK PHOS 99 U/L (45-117)
[2021-01-17 18:38] VITALS: BP 137/85; PULSE 74
== END 2021-01-17 18:30 | disposition home or self-care (01) ==
LOC: JER 12:48
PROC: 3E033GC Introduction of Other Therapeutic Substance into Peripheral Vein, Percutaneous Approach (ICD-10-PCS; principal; 2021-01-17)
DX: R42 Dizziness and giddiness (principal)
CPT/HCPCS: 36415; 70450-TC; 71045-TC-FY; 80053; 82550; 82962; 83690; 83735; 84484; 85025; 93005; 93010; 99285-25

== ENCOUNTER 2025-03-27 10:29 | Emergency (ER) | payer OTHER, BC ==
[2025-03-27 10:42] VITALS: TEMP 98.4; BMI 30.1
[2025-03-27] MEDS ORDERED: ACETAMINOPHEN INJECTION 100 ML ONE (11:16)
[2025-03-27] MEDS: ACETAMINOPHEN 1000 MG/100 ML BAG IVPB ONE (11:33)
[2025-03-27 11:48] LABS: URINE APPEARANCE CLEAR; URINE BILIRUBIN NEGATIVE (NEGATIVE); URINE COLOR YELLOW; URINE GLUCOSE (UA) 3+ (NEGATIVE); URINE KETONE NEGATIVE (NEGATIVE); URINE LEUK ESTERASE NEGATIVE (NEGATIVE); URINE NITRITE NEGATIVE (NEGATIVE); URINE PROTEIN NEGATIVE (NEGATIVE); URINE UROBILINOGEN 0.2 mg/dL (0.2-1.0)
[2025-03-27 11:49] LABS: ABSOLUTE IMMATURE GRANULOCYTES 0.03 x10^3/uL (0.0-0.031); BASOPHILS # 0.05 x10^3/uL (0.01-0.08); EOSINOPHIL % 1.7 % (0.8-7.0); EOSINOPHILS # 0.15 x10^3/uL (0.04-0.54); MCHC 31.8 g/dl (32.3-36.5); MEAN CELL VOLUME 77.7 fl (79.0-92.2); MEAN PLT VOLUME 9.4 fl (9.4-12.4); MONOCYTE # 0.68 x10^3/uL (0.30-0.82); MONOCYTE % 7.7 % (5.3-12.2); RDW 14.6 % (12.2-16.1)
[2025-03-27 11:54] LABS: GLUCOSE,RANDOM 158.0 mg/dL (74-106); TOT PROT 8.0 g/dl (6.4-8.2)
[2025-03-27 11:55] LABS: CO2 20.0 mmol/L (21-32)
[2025-03-27 11:56] LABS: ALK PHOS 127.0 U/L (40-150)
[2025-03-27 11:59] LABS: SGOT/AST 45.0 U/L (5-34); SGPT/ALT 80.0 U/L (0-55)
[2025-03-27 12:00] LABS: CREATININE 0.53 mg/dL (0.55-1.3); LACTIC ACID 2.2 mmol/L (0.4-2.0)
[2025-03-27 12:20] LABS: HCV DIAGNOSTIC IN-HOUSE W/RFLX NON-REACTIVE (NONREACTIVE); HIV INTERPRETATION NEGATIVE (NEGATIVE)
[2025-03-27] MEDS ORDERED: MORPHINE SULFATE 2 MG/ML SYRINGE ONE (12:31)
[2025-03-27] MEDS: SODIUM CHLORIDE 0.9% 500 ML INFUS.BAG IV ONE (12:38)
[2025-03-27] MEDS: morphine CARPU-JECT 2 MG/1 ML DISP.SYRIN IVPUSH ONE (12:38)
[2025-03-27 12:47] LABS: ERYTHROCYTE SEDIMENTATION RATE 6 mm/hr (0-20)
[2025-03-27 13:24] VITALS: BP 141/85; PULSE 76; RESP 19
== END 2025-03-27 13:17 | disposition home or self-care (01) ==
LOC: JER 10:29
PROC: 3E033NZ Introduction of Analgesics, Hypnotics, Sedatives into Peripheral Vein, Percutaneous Approach (ICD-10-PCS; principal; 2025-03-27)
PROC: 3E033NZ Introduction of Analgesics, Hypnotics, Sedatives into Peripheral Vein, Percutaneous Approach (ICD-10-PCS; 2025-03-27)
DX: R10.84 Generalized abdominal pain (principal); G89.18 Other acute postprocedural pain; R14.0 Abdominal distension (gaseous); R63.8 Other symptoms and signs concerning food and fluid intake
CPT/HCPCS: 36415; 80053; 81003; 83605; 85025; 85651; 86140; 86803; 86850; 86900; 86901; 87086; 87389; 93005; 93010; 99284-25